=== PATIENT | female | born 1995 | race African-American/Black ===

== ENCOUNTER 2017-03-13 19:03 | Emergency (ER) | payer OTHER, SELFPAY ==
[2017-03-13 20:00] LABS: BHCG - Serum Negative (NEGATIVE); Pregs Control Background? CLEAR/WHITE (CLR/WHITE); Pregs Control Bar Appear? YES (CONTROL BAR)
[2017-03-13 20:09] LABS: Band 1 % (5-11); Eosinophils 3 % (0-10); Hemoglobin 12.8 g/dL (12.0-16.0); Lymphocytes 33 % (21-51); MDiff Complete? YES; Mean Corpuscular HGB CONC 33.9 g/dL (32.0-36.0); Mean Corpuscular Hemoglobin 29.3 pg (27.0-31.0); Mean Corpuscular Volume 86.6 fl (81.0-99.0); Mean Platelet Volume 7.7 fL (7.4-10.4); Monocytes 3 % (0-10); Neutrophil 59 % (42-75); PLT Morphology Comment Appears Adequate; Platelet Count 241 thou/uL (130-400); RBC Distribution Width 11.4 % (11.5-14.5); Reactive Lymphocytes 1 % (0-10); Red Blood Cell (RBC) Count 4.35 mill/uL (4.20-5.40)
[2017-03-13 20:11] LABS: ALT (SGPT) 13 U/L (8-55); AST (SGOT) 19 U/L (5-34); Albumin 3.9 g/dL (3.5-5.0); Alkaline Phosphatase 71 U/L (40-150); Anion Gap 14 mmol/L (10-20); BUN (Urea Nitrogen) 10 mg/dL (7.0-18.7); Bilirubin, Total 0.4 mg/dL (0.2-1.2); Calc. Creatinine Clearance 0 mL/min (70-130); Calcium 9.3 mg/dL (7.8-10.44); Carbon Dioxide 21 mmol/L (22-29); Chloride 106 mmol/L (98-107); Estimated GFR-MDRD Greater than 90; Glucose 83 mg/dL (70-105); Potassium 4.1 mmol/L (3.5-5.1); Protein, Total 6.9 g/dL (6.0-8.3); Sodium 137 mmol/L (136-145)
== END 2017-03-13 20:57 | disposition home or self-care (01) ==
LOC: SCSER 19:03
DX: R55 Syncope and collapse (principal)
CPT/HCPCS: 36416; 80053; 84703; 85025; 93005

== ENCOUNTER 2017-07-11 13:31 | Emergency (ER) | payer SELFPAY ==
[2017-07-11 14:01] LABS: #Basophils 0.1 thou/uL (0.0-0.2); #Eosinphils 0.4 thou/uL (0.0-0.7); #Lymphocytes 1.6 thou/uL (1.20-3.40); #Monocytes 0.4 thou/uL (0.11-0.59); #Neutrophils 3.6 thou/uL (1.40-6.50); %Basophils 0.9 % (0.0-1.0); %Eosinophils 7.1 % (0.0-10.0); %Lymphocytes 26.9 % (21.0-51.0); %Monocytes 6.5 % (0.0-10.0); %Neutrophils 58.6 % (42.0-75.0); Hemoglobin 12.7 g/dL (12.0-16.0); Mean Corpuscular HGB CONC 32.9 g/dL (32.0-36.0); Mean Corpuscular Hemoglobin 29.6 pg (27.0-31.0); Mean Platelet Volume 7.1 fL (7.4-10.4); Platelet Count 221 thou/uL (130-400); RBC Distribution Width 12.1 % (11.5-14.5); Red Blood Cell (RBC) Count 4.31 mill/uL (4.20-5.40); White Blood Cell (WBC) Count 6.1 thou/uL (4.8-10.8)
[2017-07-11 14:28] LABS: BHCG - Serum Negative (NEGATIVE); Pregs Control Background? CLEAR/WHITE (CLR/WHITE); Pregs Control Bar Appear? YES (CONTROL BAR)
[2017-07-11 14:30] LABS: ALT (SGPT) 9 U/L (8-55); AST (SGOT) 17 U/L (5-34); Albumin 3.8 g/dL (3.5-5.0); Alkaline Phosphatase 73 U/L (40-150); Anion Gap 8 mmol/L (10-20); BUN (Urea Nitrogen) 10 mg/dL (7.0-18.7); Bilirubin, Total 0.6 mg/dL (0.2-1.2); Calc. Creatinine Clearance 0 mL/min (70-130); Calcium 8.9 mg/dL (7.8-10.44); Carbon Dioxide 25 mmol/L (22-29); Chloride 109 mmol/L (98-107); Estimated GFR-MDRD Greater than 90; Globulin 2.6 g/dL (2.4-3.5); Glucose 84 mg/dL (70-105); Potassium 3.8 mmol/L (3.5-5.1); Protein, Total 6.4 g/dL (6.0-8.3); Sodium 138 mmol/L (136-145)
[2017-07-11 14:34] LABS: Bilirubin Negative (Negative); Blood, Urine Negative (Negative); Clarity CLOUDY (Clear); Glucose, Urine (Dipstick) Negative (Negative); Leukocyte Small (Negative); Nitrite Negative (Negative); Protein, Urine (Dipstick) Negative (Neg-Trace); Specific Gravity, Urine 1.025 (1.002-1.036)
[2017-07-11 14:37] LABS: Bacteria/HPF Rare-Few HPF (None Seen); Hyaline Casts/LPF 4-6 HYALINE CAST LPF (0-3 Hyaline); Pathc Cast-AUWi Flag 1.01 (0-2.49)
[2017-07-11 14:52] LABS: Pregnancy Test - Urine (BHCG) Negative (Negative); Pregu Control Background? CLEAR/WHITE (CLR/WHITE); Pregu Control Bar Appear? YES (CONTROL BAR); Specific Gravity 1.025 (1.002-1.036)
[2017-07-11 15:06] LABS: RBC/HPF 0-3 HPF (0-3)
== END 2017-07-11 15:46 | disposition home or self-care (01) ==
LOC: ERS 13:31
DX: N30.00 Acute cystitis without hematuria (principal)
CPT/HCPCS: 36415; 80053; 81003; 81015; 81025; 83690; 84703; 85025; 87086; 99284

== ENCOUNTER 2017-07-26 06:03 | Emergency (ER) | payer SELFPAY ==
[2017-07-26 06:49] LABS: #Eosinphils 0.4 thou/uL (0.0-0.7); #Lymphocytes 2.7 thou/uL (1.20-3.40); #Monocytes 0.4 thou/uL (0.11-0.59); #Neutrophils 4.5 thou/uL (1.40-6.50); %Basophils 0.6 % (0.0-1.0); %Eosinophils 4.7 % (0.0-10.0); %Lymphocytes 33.6 % (21.0-51.0); %Monocytes 4.9 % (0.0-10.0); %Neutrophils 56.2 % (42.0-75.0); Hemoglobin 12.9 g/dL (12.0-16.0); Mean Corpuscular HGB CONC 33.6 g/dL (32.0-36.0); Mean Corpuscular Hemoglobin 30.1 pg (27.0-31.0); Mean Corpuscular Volume 89.7 fl (81.0-99.0); Mean Platelet Volume 7.1 fL (7.4-10.4); Platelet Count 259 thou/uL (130-400); White Blood Cell (WBC) Count 7.9 thou/uL (4.8-10.8)
[2017-07-26 07:03] LABS: ALT (SGPT) 10 U/L (8-55); AST (SGOT) 20 U/L (5-34); Albumin 3.8 g/dL (3.5-5.0); Alkaline Phosphatase 78 U/L (40-150); Anion Gap 13 mmol/L (10-20); BUN (Urea Nitrogen) 10 mg/dL (7.0-18.7); Bilirubin, Total 0.4 mg/dL (0.2-1.2); Calc. Creatinine Clearance 0 mL/min (70-130); Calcium 9.3 mg/dL (7.8-10.44); Carbon Dioxide 25 mmol/L (22-29); Chloride 105 mmol/L (98-107); Estimated GFR-MDRD Greater than 90; Glucose 109 mg/dL (70-105); Lipase 23 U/L (8-78); Protein, Total 6.8 g/dL (6.0-8.3); Sodium 139 mmol/L (136-145)
[2017-07-26 07:06] LABS: BHCG - Serum Negative (NEGATIVE); Pregs Control Background? CLEAR/WHITE (CLR/WHITE); Pregs Control Bar Appear? YES (CONTROL BAR)
[2017-07-26] MEDS ORDERED: Lidocaine Viscous Sol 2% 15 ml UD Cup ONE (07:09)
[2017-07-26] MEDS ORDERED: Famotidine 20 MG TAB ONE (07:09)
[2017-07-26] MEDS ORDERED: Milk Of Magnesia 30 ML UDCUP ONE (07:09)
[2017-07-26] MEDS ORDERED: Ondansetron ODT 4 MG TAB ONE (07:09)
[2017-07-26] MEDS ORDERED: Ketorolac Tromethamine 30 MG/ML VIAL ONE (08:19)
[2017-07-26 08:57] LABS: Bilirubin Negative (Negative); Blood, Urine Negative (Negative); Clarity CLOUDY (Clear); Glucose, Urine (Dipstick) Negative (Negative); Leukocyte Trace (Negative); Nitrite Negative (Negative); Protein, Urine (Dipstick) Negative (Neg-Trace); Specific Gravity, Urine 1.008 (1.002-1.036)
[2017-07-26 08:59] LABS: Bacteria/HPF None Seen HPF (None Seen); Hyaline Casts/LPF 0-3 HYALINE CAST LPF (0-3 Hyaline); Pathc Cast-AUWi Flag 0.14 (0-2.49); RBC/HPF 0-3 HPF (0-3); Squamous Epithelial 0-3 HPF (0-3)
--- NOTE | 2017-07-26 08:59 | ULT ---
RIGHT UPPER QUADRANT ULTRASOUND: History Epigastric pain. FINDINGS: The liver demonstrates homogeneous echotexture without focal mass or intrahepatic ductal dilatation. No gallstones, gallbladder wall thickening, or pericholecystic fluid is seen. The common duct measu res 3 mm in diameter. The right kidney and visualized portions of the pancreas are unremarkable. No free fluid is seen in Morison's pouch. IMPRESSION: No evidence of cholelithiasis. POS: [facility]
== END 2017-07-26 09:55 | disposition home or self-care (01) ==
LOC: ERS 06:03
DX: R10.13 Epigastric pain (principal); R10.11 Right upper quadrant pain; R10.12 Left upper quadrant pain
CPT/HCPCS: 76705; 80053; 81003; 81015; 83690; 84703; 85025; 96361; 96372; 96374; J1885; Q0162

== ENCOUNTER 2017-08-02 23:17 | Emergency (ER) | payer SELFPAY ==
[2017-08-02 23:52] LABS: #Basophils 0.1 thou/uL (0.0-0.2); #Eosinphils 0.2 thou/uL (0.0-0.7); #Lymphocytes 1.9 thou/uL (1.20-3.40); #Monocytes 0.6 thou/uL (0.11-0.59); #Neutrophils 4.5 thou/uL (1.40-6.50); %Basophils 0.9 % (0.0-1.0); %Eosinophils 2.2 % (0.0-10.0); %Lymphocytes 26.8 % (21.0-51.0); %Monocytes 7.6 % (0.0-10.0); %Neutrophils 62.5 % (42.0-75.0); Hemoglobin 14.6 g/dL (12.0-16.0); Mean Corpuscular HGB CONC 33.6 g/dL (32.0-36.0); Mean Corpuscular Hemoglobin 29.8 pg (27.0-31.0); Mean Corpuscular Volume 88.7 fL (78.0-98.0); Platelet Count 281 thou/uL (130-400); Red Blood Cell (RBC) Count 4.91 mill/uL (4.20-5.40); White Blood Cell (WBC) Count 7.3 thou/uL (4.8-10.8)
[2017-08-03 00:11] LABS: ALT (SGPT) 13 U/L (8-55); AST (SGOT) 24 U/L (5-34); Albumin 4.4 g/dL (3.5-5.0); Alkaline Phosphatase 84 U/L (40-150); Anion Gap 12 mmol/L (10-20); BUN (Urea Nitrogen) 14 mg/dL (7.0-18.7); Bilirubin, Total 0.4 mg/dL (0.2-1.2); Calc. Creatinine Clearance 0 mL/min (70-130); Calcium 9.5 mg/dL (7.8-10.44); Carbon Dioxide 23 mmol/L (22-29); Chloride 105 mmol/L (98-107); Estimated GFR-MDRD Greater than 90; Globulin 3.3 g/dL (2.4-3.5); Glucose 96 mg/dL (70-105); Lipase 15 U/L (8-78); Potassium 3.5 mmol/L (3.5-5.1); Protein, Total 7.7 g/dL (6.0-8.3); Sodium 136 mmol/L (136-145)
[2017-08-03] MEDS ORDERED: Ondansetron ODT 8 MG TAB ONE (00:31)
[2017-08-03 00:35] LABS: Specific Gravity 1.033 (1.002-1.036)
[2017-08-03 00:38] LABS: Pregnancy Test - Urine (BHCG) Negative (Negative); Pregu Control Background? CLEAR/WHITE (CLR/WHITE); Pregu Control Bar Appear? YES (CONTROL BAR)
[2017-08-03 00:50] LABS: Bilirubin Small (Negative); Blood, Urine Small (Negative); Clarity CLOUDY (Clear); Glucose, Urine (Dipstick) Negative (Negative); Leukocyte Small (Negative); Nitrite Negative (Negative); Protein, Urine (Dipstick) Trace mg/dL (Neg-Trace); Specific Gravity, Urine 1.033 (1.002-1.036); pH, Urine 5.5 (5.0-9.0)
[2017-08-03 00:52] LABS: Bacteria/HPF 1+ HPF (None Seen); Pathc Cast-AUWi Flag 1.01 (0-2.49); WBC/HPF 21-50 HPF (0-3)
[2017-08-03 01:12] LABS: Hyaline Casts/LPF NONE SEEN LPF (0-3 Hyaline)
== END 2017-08-03 01:27 | disposition home or self-care (01) ==
LOC: ERS 23:17
DX: R11.2 Nausea with vomiting, unspecified (principal); N39.0 Urinary tract infection, site not specified
CPT/HCPCS: 36415; 80053; 81003; 81015; 81025; 83690; 85025; 96372

== ENCOUNTER 2018-01-17 15:28 | Emergency (ER) | payer SELFPAY ==
[2018-01-17 16:16] LABS: #Eosinphils 0.2 thou/uL (0.0-0.7); #Monocytes 0.4 thou/uL (0.11-0.59); #Neutrophils 5.3 thou/uL (1.40-6.50); %Basophils 0.4 % (0.0-1.0); %Eosinophils 2.3 % (0.0-10.0); %Lymphocytes 33.7 % (21.0-51.0); %Monocytes 4.5 % (0.0-10.0); %Neutrophils 59.2 % (42.0-75.0); Hemoglobin 13.2 g/dL (12.0-16.0); Mean Corpuscular HGB CONC 33.2 g/dL (32.0-36.0); Mean Corpuscular Hemoglobin 29.9 pg (27.0-31.0); Mean Corpuscular Volume 90.1 fL (78.0-98.0); Mean Platelet Volume 7.4 fL (7.4-10.4); Platelet Count 283 thou/uL (130-400); RBC Distribution Width 11.4 % (11.5-14.5); Red Blood Cell (RBC) Count 4.41 mill/uL (4.20-5.40)
[2018-01-17 16:37] LABS: ALT (SGPT) 9 U/L (8-55); AST (SGOT) 16 U/L (5-34); Alkaline Phosphatase 71 U/L (40-150); Anion Gap 11 mmol/L (10-20); BUN (Urea Nitrogen) 9 mg/dL (7.0-18.7); Bilirubin, Total 0.4 mg/dL (0.2-1.2); Calc. Creatinine Clearance 0 mL/min (70-130); Calcium 9.5 mg/dL (7.8-10.44); Carbon Dioxide 22 mmol/L (22-29); Chloride 106 mmol/L (98-107); Estimated GFR-MDRD Greater than 90; Globulin 3.1 g/dL (2.4-3.5); Glucose 95 mg/dL (70-105); Potassium 4.4 mmol/L (3.5-5.1); Protein, Total 7.1 g/dL (6.0-8.3); Sodium 135 mmol/L (136-145)
[2018-01-17 17:45] LABS: Bilirubin Negative (Negative); Blood, Urine Small (Negative); Clarity CLEAR (Clear); Glucose, Urine (Dipstick) Negative (Negative); Leukocyte Negative (Negative); Nitrite Negative (Negative); Protein, Urine (Dipstick) Negative (Neg-Trace); Specific Gravity, Urine 1.008 (1.002-1.036)
[2018-01-17 17:48] LABS: Pregnancy Test - Urine (BHCG) Negative (Negative); Pregu Control Background? CLEAR/WHITE (CLR/WHITE); Pregu Control Bar Appear? YES (CONTROL BAR); Specific Gravity 1.008 (1.002-1.036)
[2018-01-17 17:50] LABS: Bacteria/HPF None Seen HPF (None Seen); Hyaline Casts/LPF 0-3 HYALINE CAST LPF (0-3 Hyaline); RBC/HPF 0-3 HPF (0-3); Squamous Epithelial 0-3 HPF (0-3); WBC/HPF None Seen HPF (0-3)
== END 2018-01-17 18:37 | disposition home or self-care (01) ==
LOC: ERS 15:28
DX: N93.9 Abnormal uterine and vaginal bleeding, unspecified (principal)
CPT/HCPCS: 36415; 80053; 81003; 81015; 81025; 85025; 99284

== ENCOUNTER 2018-04-18 17:43 | Emergency (ER) | payer MEDICAID, OTHER ==
[2018-04-18 18:07] LABS: #Eosinphils 0.1 thou/uL (0.0-0.7); #Lymphocytes 2.2 thou/uL (1.20-3.40); #Monocytes 0.4 thou/uL (0.11-0.59); #Neutrophils 6.6 thou/uL (1.40-6.50); %Basophils 0.3 % (0.0-1.0); %Eosinophils 0.9 % (0.0-10.0); %Lymphocytes 23.3 % (21.0-51.0); %Neutrophils 71.6 % (42.0-75.0); Hemoglobin 11.3 g/dL (12.0-16.0); Mean Corpuscular HGB CONC 33.4 g/dL (32.0-36.0); Mean Corpuscular Hemoglobin 29.9 pg (27.0-31.0); Mean Corpuscular Volume 89.6 fL (78.0-98.0); Mean Platelet Volume 7.1 fL (7.4-10.4); Platelet Count 245 thou/uL (130-400); RBC Distribution Width 11.5 % (11.5-14.5); Red Blood Cell (RBC) Count 3.79 mill/uL (4.20-5.40); White Blood Cell (WBC) Count 9.3 thou/uL (4.8-10.8)
[2018-04-18] MEDS ORDERED: Ondansetron ODT 4 MG TAB ONE (18:08)
[2018-04-18 18:38] LABS: ALT (SGPT) 9 U/L (8-55); AST (SGOT) 14 U/L (5-34); Albumin 3.7 g/dL (3.5-5.0); Alkaline Phosphatase 55 U/L (40-150); Anion Gap 10 mmol/L (10-20); BUN (Urea Nitrogen) 6 mg/dL (7.0-18.7); Bilirubin, Total 0.4 mg/dL (0.2-1.2); Calc. Creatinine Clearance 0 mL/min (70-130); Calcium 9.7 mg/dL (7.8-10.44); Carbon Dioxide 23 mmol/L (22-29); Chloride 106 mmol/L (98-107); Estimated GFR-MDRD Greater than 90; Glucose 81 mg/dL (70-105); Lipase 12 U/L (8-78); Potassium 4.1 mmol/L (3.5-5.1); Protein, Total 6.7 g/dL (6.0-8.3); Sodium 135 mmol/L (136-145)
[2018-04-18 20:12] LABS: Bilirubin Small (Negative); Blood, Urine Negative (Negative); Clarity CLEAR (Clear); Glucose, Urine (Dipstick) Negative (Negative); Leukocyte Moderate (Negative); Nitrite Negative (Negative); Protein, Urine (Dipstick) Negative (Neg-Trace); Specific Gravity, Urine 1.026 (1.002-1.036)
[2018-04-18 20:15] LABS: Bacteria/HPF 1+ HPF (None Seen); Hyaline Casts/LPF 7-10 HYALINE CAST LPF (0-3 Hyaline); Pathc Cast-AUWi Flag 2.17 (0-2.49); Pregnancy Test - Urine (BHCG) POSITIVE (Negative); Pregu Control Background? CLEAR/WHITE (CLR/WHITE); Pregu Control Bar Appear? YES (CONTROL BAR); RBC/HPF 0-3 HPF (0-3); Specific Gravity 1.003 (1.002-1.036); WBC/HPF 21-50 HPF (0-3)
[2018-04-18] MEDS ORDERED: Metoclopramide HCl 10 MG/2 ML VIAL ONE (21:10)
[2018-04-18] MEDS ORDERED: Acetaminophen 500 MG TAB ONE (21:10)
--- NOTE | 2018-04-18 21:18 | ULT ---
PELVIC ULTRASOUND: 04/18/18 HISTORY: Abdominal pain. Patient is . Real time imaging of the pelvis was obtained transabdominally. This shows a single viable intrauterin e in a variable presentation. Placenta is anterior in location. Posteriorly there appears t o be a contraction during this exam. heart rate is 171 beats per minute. Amniotic fluid is adeq uate for this stage of . measurements are as follows: BPD 3.5 cm 16 weeks, 5 days Head circumference 12.8 cm 16 weeks, 3 days Abdominal circumference 10.2 cm 16 weeks, 2 days Femur length 2.2 cm 16 weeks, 3 days anatomy was not assessed on this emergent exam. IMPRESSION: 1. Single viable intrauterine in a variable presentation. Overall measurements corresp onding to gestational age of 16 weeks, 3 days. Estimated date of delivery is 09/30/18. 2. Placenta which is anterior in location without evidence of previa. POS: [facility]
--- NOTE | 2018-04-18 23:24 | ULT ---
LIMITED ABDOMINAL ULTRASOUND: 04/18/18 HISTORY: Right lower quadrant abdominal pain in patient with positive . COMPARISON: OB ultrasound also obtained on this date prior to this exam. FINDINGS: Imaging was performed in the right lower quadrant in the region of the patient's pain. No fluid or fl uid collection is seen in this region. The appendix is not visualized and there is shadowing from bow el gas present. As the result, appendicitis cannot be excluded based on sonographic evaluation. The ovaries are visualized bilaterally and demonstrate a normal sonographic appearance. The right ova ry measures 2.5 cm x 2.5 cm x 3 cm with the left ovary measuring 3.3 cm x 1.3 cm x 2.2 cm. Doppler evaluation of each ovary with spectral analysis and color flow evaluation demonstrates arteri al and venous flow in each ovary. No free fluid is seen within the visualized pelvis or right lower quadrant. IMPRESSION: 1. Limited examination. There is shadowing from bowel gas in the right lower quadrant in region of patient's pain limiting evaluation. The appendix is not visualized on this exam. Appendicitis james ot be excluded based on sonographic evaluation if this is a clinical concern. 2. Normal appearing bilateral ovaries with arterial flow documented in each ovary. POS: [facility]
== END 2018-04-18 23:03 | disposition home or self-care (01) ==
LOC: ERS 17:43
DX: O23.42 Unspecified infection of urinary tract in pregnancy, second trimester (principal); O99.89 Other specified diseases and conditions complicating pregnancy, childbirth and the puerperium; R10.31 Right lower quadrant pain; Z3A.16 16 weeks gestation of pregnancy
CPT/HCPCS: 36415; 76705; 76805; 80053; 81003; 81015; 81025; 83690; 84702; 85025; 86900; 86901; 96365; 96366; J2765; Q0162

== ENCOUNTER 2018-06-01 08:44 | Outpatient (CLI) | payer OTHER ==
--- NOTE | 2018-06-01 09:48 | ULT ---
OBSTETRIC SONOGRAM: HISTORY: Second-trimester gestation. evaluation. FINDINGS: Single intrauterine gestation in cephalic presentation. Cervix is closed and 4.0 cm. Grade 0 placen ta is anterior without evidence of previa. Amniotic fluid within normal limits. No gross intracrani al abnormalities are apparent. Four-chamber heart shows motion at 158 b.p.m. spine and kidney s are intact as visualized. Three-vessel cord shows a normal insertion. Measurements are as follows: Biparietal diameter 22 weeks 3 days. Head circumference 23 weeks 2 days. Abdominal circumference 22 weeks 6 days. Femur length 23 weeks 4 days. Estimated date of delivery based on today's sonogram 09/27/2018. Hadlock 82percentile. IMPRESSION: Single viable intrauterine gestation with estimated gestational age based on today's sonogram of 23 w eeks 1 day. No significant abnormalities are demonstrated. POS: [facility]
== END 2018-06-01 08:45 | disposition home or self-care (01) ==
LOC: BICULT 08:44
PROVIDERS: ATTEND Family Medicine
DX: Z34.82 Encounter for supervision of other normal pregnancy, second trimester (principal); Z3A.23 23 weeks gestation of pregnancy
CPT/HCPCS: 76805

== ENCOUNTER 2018-07-01 17:04 | Day surgery (SDC) | payer OTHER ==
[2018-07-01 17:49] VITALS: BMI 25.7
--- NOTE | 2018-07-01 20:03 | PDOC.LDHP ---
Labor and Delivery H&P Chief complaint: other (CTX after sex last PM) HPI: Patient of Dr Salas Time: 1999 Location: [facility] HPI: 22 yo at 26 weeks 4 days with EDC 10/03/18 here for lower pelvic cramping started after sex. CTX possible from 2969-4923 after sex. Emesis x 1 this am. No LOF, no VB, no recent trauma, no HX PTL. Review of Systems: complete ROS completed and as per HPI Current gestational age (weeks): 26 (4 days) Due date: 10/03/18 Dating criteria: last menstrual period Grav: 4 Para: 3 OB History Details: Term x3 Current complications: none Abnormal US findings: No Current medications: pre-jose vitamins Previous surgical history: none Allergies/Adverse Reactions: Allergies Allergy/AdvReac Type Severity Reaction Status Date / Time ceftriaxone Allergy Verified 07/01/18 20:04 Social history: none - Physical Exam Vital signs reviewed and normal: yes (88/65 98.6 90) General: NAD Heart: RRR Lungs: CTAB Abdomen: gravid Extremeties: no edema [place] contractions every: FHTs reactive for EGA, uterine irritability on monitor - Assessment 26 weeks 4 days with lower pelvic cramping...s/p intercourse last PM (within 24 hours) - Plan Plan: observation in L&D (FFN contraindicated in this setting due to recent sex. CX length sono ordered. FFN if CX shortened. Clinically stable at this time.)
--- NOTE | 2018-07-01 21:22 | PDOC.EVN ---
Event Note - Event Note Event Note: CX was 4cm...no evidence LOF on exam; ok for outpatient care
--- NOTE | 2018-07-01 21:27 | ULT ---
Limited pelvic ultrasound. HISTORY: Contractions evaluate cervical length. Multiple longitudinal and transverse images of the uterine cervix is obtained using multi hertz endov aginal transducer. Real-time images obtained. The cervix has a length of approximately 4.1 cm. IMPRESSION: Cervical length measures 4.1 cm.
[2018-07-01] MEDS ORDERED: Acetaminophen 500 MG TAB PO SCH (21:30)
--- NOTE | 2018-07-01 21:56 | PDOC.EVN ---
Event Note - Event Note Event Note: Follow up: Although cx was 4cm (ruling her out for any further management), I have ordered 1 liter LR fort conservative care due to uterine irritability.
[2018-07-01] MEDS ORDERED: Lactated Ringer's 1,000 ML IV SCH (22:00)
== END 2018-07-01 22:44 | disposition home or self-care (01) ==
LOC: L&D/OP 17:04
PROVIDERS: ATTEND Family Medicine
DX: O99.89 Other specified diseases and conditions complicating pregnancy, childbirth and the puerperium (principal); R10.2 Pelvic and perineal pain; Z3A.26 26 weeks gestation of pregnancy; Z88.1 Allergy status to other antibiotic agents
CPT/HCPCS: 96360; 99282

== ENCOUNTER 2018-08-14 07:53 | Outpatient (CLI) | payer OTHER ==
--- NOTE | 2018-08-14 09:31 | ULT ---
OBSTETRICAL ULTRASOUND FOLLOWUP: INDICATION: History of gestational diabetes. TECHNIQUE: Duke scale and Doppler evaluation was performed in addition to a spectral Doppler evaluation of the u mbilical artery. COMPARISON: Prior exam dated 06/01/2018. FINDINGS: There is a single live intrauterine gestation in vertex presentation. The placenta is anterior in lo cation without evidence of previa. The cervical length was 4.6 cm. The STEFANIE measured 14.4 cm. The estimated weight is 2,241 gm. (This is the 40th percentile based on Hadlock criteria.) Average gestational age by ultrasound is 34 weeks and 4 days utilizing biometrics. The umbilical artery spectral Doppler evaluation demonstrates a low resistance waveform at all segmen ts at the placenta, midline, and at the cord insertion. Systolic-diastolic ratio at the cord inserti on was 2.3, mid cord 1.7, and at the placenta 1.8. The resistive index at the cord insertion was 0.5 7, mid core 0.40, and at the placenta 0.44. IMPRESSION: 1. Single live intrauterine gestation. 2. Umbilical artery Doppler evaluation appeared within normal limits. POS: [facility]
== END 2018-08-14 07:54 | disposition home or self-care (01) ==
LOC: BICULT 07:53
PROVIDERS: ATTEND Family Medicine
DX: O24.410 Gestational diabetes mellitus in pregnancy, diet controlled (principal); Z3A.34 34 weeks gestation of pregnancy
CPT/HCPCS: 76700; 76816

== ENCOUNTER 2018-08-24 20:47 | Day surgery (SDC) | payer OTHER ==
[2018-08-24 21:24] VITALS: BP 110/59; TEMP 98.9; BMI 26.4
[2018-08-24] MEDS ORDERED: hydrALAZINE 20 MG/ML VIAL SLOW IVP PRN (21:59)
[2018-08-24 22:46] LABS: FFN Internal QC Analyzer PASS (PASS); FFN Internal QC Cassette PASS (PASS); Fetal Fibronectin Negative (Negative)
--- NOTE | 2018-08-24 23:06 | PRG ---
DATE OF SERVICE: 08/24/2018 PRIMARY OB: Poncho Salas MD CHIEF COMPLAINT: Abdominal and back pains. HISTORY OF PRESENT ILLNESS: The patient is a 22-year-old G4, P3 female with an intrauterine at 34 weeks and 2 days, who presents to Labor and Delivery with abdominal and back pain. The patient reports that they started a day or so ago in her abdomen and today noticed that they are much worse on her back and not so much in her abdomen anymore. She reports that they last about 5 to 10 minutes. Initially, she denies any association with activity and movement but later in our conversation, the patient does endorse exacerbation with movement such as getting out of car, getting out of bed, picking up children. The patient denies any vaginal bleeding, any leakage of fluid or change in discharge, any urinary urgency or frequency. The patient denies any recent illness, fever, fall, headache, chest pain, or shortness of breath. The patient has had nausea, but no vomiting. No diarrhea or constipation. No hip problems, knee problems, or muscle weakness. No vaginal bleeding, leakage of fluid, or urinary urgency or frequency. PAST MEDICAL HISTORY: Gestational diabetes, diet controlled with this . PAST SURGICAL HISTORY: Negative. OBSTETRIC HISTORY: She has had three term vaginal deliveries. OB LABS: Unavailable. SOCIAL HISTORY: Denies drug, alcohol, or tobacco use. MEDICATIONS: vitamins. ALLERGIES: . REVIEW OF SYSTEMS: Per HPI. PHYSICAL EXAMINATION: VITAL SIGNS: Blood pressure is 110/59, heart rate of 96, respiratory rate of 18, saturating 98% on room air, temperature 98.9. GENERAL: She appears to be in no acute distress. She is alert and oriented, cooperative, and pleasant to interact with. HEAD: Normocephalic, atraumatic. LUNGS: Clear to auscultation bilaterally. HEART: Regular rate and rhythm. ABDOMEN: Gravid and soft. She does have some lower pelvic discomfort with deviation and pressure on the uterus. She has SI joint tenderness on the right more than the left to palpation. No CVA tenderness. No vertebral tenderness. EXTREMITIES: Nontender with minimal edema. Cervical exam per nursing staff is 1, 50, and -2 station. heart tracing performed. Baseline is noted to be in the 140s with moderate long-term variability, positive 15 x 15 accelerations, no decelerations. Tocometer shows possibly some irritability, but no real contraction pattern visible. fibronectin collected and sent. ASSESSMENT AND PLAN: The patient is a 22-year-old multiparous female with an intrauterine at 34 weeks, complaining of abdominal, pelvic and back pains. Her pains by history and exam are most consistent with musculoskeletal pains in . There is no evidence of active labor. fibronectin has been sent just for confirmation and given these findings, the patient will be discharged to home with labor precautions. Fetus has category 1 tracing and reactive NST. Job ID: [id number]
== END 2018-08-24 23:05 | disposition home or self-care (01) ==
LOC: L&D/OP 20:47
PROVIDERS: ATTEND Family Medicine
DX: O99.89 Other specified diseases and conditions complicating pregnancy, childbirth and the puerperium (principal); R10.2 Pelvic and perineal pain; M54.9 Dorsalgia, unspecified; O24.410 Gestational diabetes mellitus in pregnancy, diet controlled; Z3A.34 34 weeks gestation of pregnancy; Z88.1 Allergy status to other antibiotic agents
CPT/HCPCS: 82731; 99283

== ENCOUNTER 2018-09-05 11:32 | Inpatient (IN) | payer OTHER ==
[2018-09-05 11:53] VITALS: BMI 26.6
[2018-09-05] MEDS ORDERED: hydrALAZINE 20 MG/ML VIAL SLOW IVP PRN ×3 (12:12→14:34)
[2018-09-05] MEDS ORDERED: Butorphanol Tartrate 1 MG/ML VIAL SLOW IVP PRN (12:15)
[2018-09-05] MEDS ORDERED: NS / Oxytocin 40 units/1000ml 1,000 ML IV PRN (12:15)
[2018-09-05] MEDS ORDERED: Promethazine HCl 25 MG/ML VIAL IM PRN ×2 (12:15→14:34)
[2018-09-05] MEDS ORDERED: HYDROcodone/Acetaminophen 5/325 mg Tablet PO PRN ×3 (12:15→14:34)
[2018-09-05] MEDS ORDERED: Ibuprofen 800 MG TAB PO PRN (12:15)
[2018-09-05] MEDS ORDERED: Lidocaine 1% (PF) 30 ML VIAL SC PRN (12:15)
[2018-09-05] MEDS ORDERED: Ondansetron PF 4 MG/2 ML Vial IVP PRN ×2 (12:15→14:34)
[2018-09-05] MEDS ORDERED: Lactated Ringer's 1,000 ML IV SCH (12:15)
--- NOTE | 2018-09-05 12:26 | PDOC.LDHP ---
Labor and Delivery H&P HPI: Patient of Dr farias Time: 1230 Reason for Eval/CC: CTX at 36 weeks HPI: 22 yo at 34 weeks 5 days with A1DM under good control, here for CTX. She states her due date is 10/03 but chart states it is 09/26. I have notified Dr farias about the discepancy and am awaiting his EDC clarification. Using the EDC she gives makes her 36 weeks 0 days, unknown GBS status. No LOF, no VB, no trauma HX Review of Systems: complete ROS completed and as per HPI Current gestational age (weeks): 36 (o days by stated EDC of 10/03) Due date: 10/03/18 (Chart says EDC is 08/26) Dating criteria: last menstrual period Grav: 4 Para: 3 OB History Details: All SVDs at term Current complications: gestational diabetes (Diet controlled, good control) Abnormal US findings: No Current medications: pre-jose vitamins Previous surgical history: none Allergies/Adverse Reactions: Allergies Allergy/AdvReac Type Severity Reaction Status Date / Time ceftriaxone [From Rocephin] Allergy Mild Rash Verified 09/05/18 11:52 - Physical Exam Vital signs reviewed and normal: yes (114/66 93 afebrile) General: NAD Heart: RRR Lungs: CTAB Abdomen: gravid Extremeties: no edema FHT: category 1, variability present [place] contractions every: every 4 minutes - Vaginal Exam cm dilated: 6 (by my exam) Effacement: 50% (to 60%) Station: 0 - Assessment L&D Assessment: labor (late at 36 weeks by her stated EDC. If EDC is one week earlier (as in chart), then she would be 37. A1DM...good contol) - Plan Plan: admit to L&D, GBS antibiotic prophylaxis (unknown GBS and may be 36 weeks by her stated EDC), informed consent obtained, anesthesia consult for pain management, other (I have notified Dr farias by [facility]. I have notified pedi as well as for EGA 36 weeks, as FYI. I will check CMP for GDM HX)
[2018-09-05] MEDS ORDERED: Penicillin G Potassium 5 MILL.UNITS in Sodium Chloride 0.9% 100 ML IVPB SCH (12:30)
[2018-09-05 12:59] LABS: Hemoglobin 10.1 g/dL (12.0-16.0); Mean Corpuscular HGB CONC 33.8 g/dL (32.0-36.0); Mean Corpuscular Hemoglobin 27.5 pg (27.0-31.0); Mean Corpuscular Volume 81.4 fL (78.0-98.0); Mean Platelet Volume 7.7 fL (7.4-10.4); Platelet Count 235 thou/uL (130-400); Red Blood Cell (RBC) Count 3.68 mill/uL (4.20-5.40); White Blood Cell (WBC) Count 9.2 thou/uL (4.8-10.8)
[2018-09-05] MEDS ORDERED: NS / Oxytocin 40 units/1000ml 1,000 ML ONE (13:04)
[2018-09-05 13:26] LABS: ALT (SGPT) Less than 7 U/L (8-55); AST (SGOT) 10 U/L (5-34); Albumin 3.5 g/dL (3.5-5.0); Alkaline Phosphatase 110 U/L (40-150); Anion Gap 12 mmol/L (10-20); BUN (Urea Nitrogen) 5 mg/dL (7.0-18.7); Bilirubin, Total 0.5 mg/dL (0.2-1.2); Calc. Creatinine Clearance 201 mL/min (70-130); Calcium 9.1 mg/dL (7.8-10.44); Carbon Dioxide 20 mmol/L (22-29); Chloride 108 mmol/L (98-107); Estimated GFR-MDRD Greater than 90; Globulin 2.7 g/dL (2.4-3.5); Glucose 73 mg/dL (70-105); Potassium 3.9 mmol/L (3.5-5.1); Protein, Total 6.2 g/dL (6.0-8.3); Sodium 136 mmol/L (136-145)
[2018-09-05 13:41] LABS: Syphilis Antibody Nonreactive (Nonreactive); Syphilis Antibody Index 0.05 S/CO (<1.00 Non-Reactive)
[2018-09-05 13:43] LABS: HBSAg Index 0.35 S/CO (0-0.99); HIV (1/2) Antibody/Antigen Non-Reactive (NonReactive); Hep B Surf Ag Non-Reactive S/CO (NonReactive)
[2018-09-05] MEDS ORDERED: Milk Of Magnesia 30 ML UDCUP PO PRN (14:34)
[2018-09-05] MEDS ORDERED: diphenhydrAMINE 25 MG CAP PO PRN (14:34)
[2018-09-05] MEDS ORDERED: Adacel (T-DAP) 0.5 ML SYRINGE IM ONE (14:34)
[2018-09-05] MEDS ORDERED: NS / Oxytocin 40 units/1000ml 1,000 ML IV SCH (14:34)
[2018-09-05] MEDS ORDERED: Preparation H Ointment 28 GM TUBE PR PRN (14:34)
[2018-09-05] MEDS ORDERED: Lanolin Ointment 7 GM TUBE TOP PRN (14:34)
[2018-09-05] MEDS ORDERED: Bisacodyl 10 MG SUPP PR PRN (14:34)
[2018-09-05] MEDS ORDERED: Benzocaine-Menthol 82.5 ML CAN TOP PRN (14:34)
[2018-09-05] MEDS: HYDROcodone/Acetaminophen 5/325 mg Tablet PO PRN ×2 (14:55→19:58)
[2018-09-05] MEDS ORDERED: Penicillin G 2.5 MILL.units 2.5 MILL.UNITS in Premix Bag 1 BAG IVPB SCH (17:00)
[2018-09-05] MEDS: Ferrous Sulfate 325 MG TAB PO SCH (17:09)
[2018-09-05] MEDS: Ibuprofen 800 MG TAB PO SCH (19:59)
[2018-09-05] MEDS: Docusate Calcium (SURFAK) 240 MG CAP PO SCH (20:00)
[2018-09-06 06:00] LABS: Hemoglobin 8.6 g/dL (12.0-16.0); Mean Corpuscular HGB CONC 32.1 g/dL (32.0-36.0); Mean Corpuscular Hemoglobin 27.1 pg (27.0-31.0); Mean Corpuscular Volume 84.6 fL (78.0-98.0); Mean Platelet Volume 7.7 fL (7.4-10.4); Platelet Count 223 thou/uL (130-400); RBC Distribution Width 12.9 % (11.5-14.5); Red Blood Cell (RBC) Count 3.18 mill/uL (4.20-5.40); White Blood Cell (WBC) Count 10.4 thou/uL (4.8-10.8)
[2018-09-06] MEDS: Ibuprofen 800 MG TAB PO SCH ×4 (06:22→21:35)
[2018-09-06] MEDS: Ferrous Sulfate 325 MG TAB PO SCH ×2 (08:17→17:45)
[2018-09-06] MEDS: Docusate Calcium (SURFAK) 240 MG CAP PO SCH ×2 (08:18→21:35)
[2018-09-06] MEDS: HYDROcodone/Acetaminophen 5/325 mg Tablet PO PRN (18:04)
[2018-09-07] MEDS: Ibuprofen 800 MG TAB PO SCH ×3 (06:00→14:23)
[2018-09-07] MEDS: Docusate Calcium (SURFAK) 240 MG CAP PO SCH (07:32)
[2018-09-07] MEDS: Ferrous Sulfate 325 MG TAB PO SCH ×2 (07:32→18:18)
[2018-09-07 07:55] VITALS: BP 110/69; TEMP 98.1
--- NOTE | 2018-09-07 09:20 | PDOC.EVN ---
Event Note - Event Note Event Note: I received a consult request for this mother this am from Dr. Monroy. This patient has delivered her baby who is currently admitted to the nursery under Dr. Salas. I contacted the current OB hospitalist, Dr. Ryan, who has no knowledge of the patient and discussed that that at 36 weeks neonatology consultation is not indicated. I informed that unless other information comes available to warrant consultation, I would not see the patient at this time.
[2018-09-07] MEDS: HYDROcodone/Acetaminophen 5/325 mg Tablet PO PRN (12:11)
== END 2018-09-07 18:15 | disposition home or self-care (01) | DRG 805 ==
LOC: L&D/OP 11:32 → L&D 12:47 → 3SW 16:40
PROVIDERS: ADMIT Family Medicine; ATTEND Family Medicine
PROC: 10E0XZZ Delivery of Products of Conception, External Approach (ICD-10-PCS; principal; 2018-09-05)
DX: O24.420 Gestational diabetes mellitus in childbirth, diet controlled (principal); O60.14X0 Preterm labor third trimester with preterm delivery third trimester, not applicable or unspecified; Z37.0 Single live birth; Z3A.35 35 weeks gestation of pregnancy; O99.820 Streptococcus B carrier state complicating pregnancy; O69.1XX0 Labor and delivery complicated by cord around neck, with compression, not applicable or unspecified
CPT/HCPCS: 36415; 80053; 85027; 86780; 86850; 86900; 86901; 87340; 87389; 88307; 99285; J0595; J2540; J3490

== ENCOUNTER 2021-12-28 17:06 | Emergency (ER) | payer SELFPAY ==
[2021-12-28 18:07] LABS: #Eosinphils 0.1 thou/uL (0.0-0.7); #Monocytes 0.3 thou/uL (0.11-0.59); #Neutrophils 6.1 thou/uL (1.40-6.50); %Basophils 0.6 % (0.0-1.0); %Lymphocytes 13.1 % (21.0-51.0); %Monocytes 4.4 % (0.0-10.0); Hemoglobin 12.9 g/dL (12.0-16.0); Mean Corpuscular HGB CONC 33.4 g/dL (32.0-36.0); Mean Corpuscular Hemoglobin 31.1 pg (27.0-31.0); Mean Corpuscular Volume 93.3 fl (78.0-98.0); Mean Platelet Volume 7.8 fL (7.4-10.4); Platelet Count 223 10x3/uL (130-400); RBC Distribution Width 10.8 % (11.5-14.5); Red Blood Cell (RBC) Count 4.16 mill/uL (4.20-5.40); White Blood Cell (WBC) Count 7.6 10x3/uL (4.8-10.8)
[2021-12-28 18:18] LABS: Bacteria/HPF 2+ HPF (None Seen); Bilirubin Negative (Negative); Blood, Urine 1+ (Negative); Clarity Turbid (Clear); Glucose, Urine (Dipstick) Normal (Negative); Ketone, Urine Negative (Negative); Leukocyte 500 Leu/uL (Negative); Nitrite Negative (Negative); Protein, Urine (Dipstick) 10 mg/dL (Neg-Trace); RBC/HPF 0-3 HPF (0-3); Specific Gravity, Urine 1.022 (1.002-1.036); Urobilinogen 6 mg/dL (Less than 2); WBC/HPF 0-3 HPF (0-3)
[2021-12-29 10:24] LABS: Chlamydia by PCR Not Detected (NotDetected); GC by PCR Not Detected (NotDetected)
== END 2021-12-28 20:38 | disposition home or self-care (01) ==
LOC: ERS 17:06
DX: O20.0 Threatened abortion (principal); J45.909 Unspecified asthma, uncomplicated; N39.0 Urinary tract infection, site not specified
CPT/HCPCS: 36415; 76856; 81003; 81015; 84702; 85025; 86900; 86901; 87077; 87086; 87186; 87480; 87491; 87510; 87591; 87660; 94640; J7620

== ENCOUNTER 2023-08-25 11:02 | Emergency (ER) | payer OTHER ==
[2023-08-25 12:38] LABS: Bacteria/HPF None Seen HPF (None Seen); Bilirubin Negative (Negative); Blood, Urine Negative (Negative); CAUTI Indications for Culture Pelvic or flank pain; Clarity Clear (Clear); Glucose, Urine (Dipstick) Normal (Negative); Ketone, Urine Negative (Negative); Leukocyte Negative Leu/uL (Negative); Nitrite Negative (Negative); Protein, Urine (Dipstick) Negative (Neg-Trace); RBC/HPF 0-3 HPF (0-3); Specific Gravity, Urine 1.014 (1.002-1.036); Squamous Epithelial 0-3 HPF (0-3); Urobilinogen Normal mg/dL (Less than 2); WBC/HPF 0-3 HPF (0-3); pH, Urine 7.5 (5.0-9.0)
[2023-08-25 12:40] LABS: Urine Culture Reflex No No
[2023-08-25 13:09] LABS: Influenza A by NAA Not Detected (NotDetected); Influenza B by NAA Not Detected (NotDetected); SARS-CoV-2 NAA Rapid Test Not Detected (NotDetected)
[2023-08-25 13:56] LABS: Pregnancy Test - Urine (BHCG) Negative (Negative); Pregu Control Background? CLEAR/WHITE (CLR/WHITE); Pregu Control Bar Appear? YES (CONTROL BAR); Specific Gravity 1.014 (1.002-1.036)
== END 2023-08-25 14:13 | disposition home or self-care (01) ==
LOC: ERS 11:02
DX: B34.9 Viral infection, unspecified (principal); F17.210 Nicotine dependence, cigarettes, uncomplicated
CPT/HCPCS: 71046; 81001; 81025; Q0162